=== PATIENT | male | born 1980 | race Caucasian/White ===

== ENCOUNTER 2022-06-13 08:34 | Emergency (ER) | payer MEDICAID ==
[~2022-06-13] VITALS: Ht 185.4 cm; Wt 73.0 kg
[2022-06-13] MEDS ORDERED: OXYCODONE HCL/ACETAMINOPHEN 5/325MG TABLET PO ONE (09:15)
[2022-06-13] MEDS ORDERED: OXYC-100 MT (09:53)
[2022-06-13] MEDS ORDERED: CYCL10TA21 MT (09:55)
[2022-06-13 10:28] VITALS: BP 136/84
== END 2022-06-13 14:06 | disposition home or self-care (01) ==
LOC: ER 08:34
DX: G89.29 Other chronic pain (principal); M54.50 Low back pain, unspecified; Z88.8 Allergy status to other drugs, medicaments and biological substances
CPT/HCPCS: 99283; Z7610